=== PATIENT | female | born 1935 | race Caucasian/White ===

== ENCOUNTER 2018-05-01 02:39 | Observation (INO) | payer BC ==
[2018-05-01 03:41] VITALS: BMI 26.5
--- NOTE | 2018-05-01 04:09 | PDOC ---
Attending Attestation - HPI HPI: 05/01/18 05:17 The patient is a 83 year old female, with a significant past medical history of hypertension and hyperlipidemia, who presents to the emergency department with, chest pain. Patient notes her chest pain onset at 1AM as substernal, pressure- like pain. She denies any worsening or alleviating factors. She denies recent fevers, chills, headache or dizziness. She denies recent nausea, vomit, diarrhea or constipation. She denies recent dysuria, frequency, urgency or hematuria. She denies recent shortness of breath. Allergies: As per nursing notes. Primary Care Physician: Dr. Quinones - Physicial Exam PE: 05/01/18 05:17 Refer to resident exam. <Inessa Sanchez - Last Filed: 05/01/18 05:17> - Resident Resident Name: Melvi Constantino - ED Attending Attestation I have performed the following: I have examined & evaluated the patient, The case was reviewed & discussed with the resident, I agree w/resident's findings & plan - Medical Decision Making 05/01/18 06:08 83-year-old female with substernal chest pressure that began at rest while watching TV EKG shows no acute ST changes though patient's heart score is 4 She will be held for serial enzymes <Elsie Porter - Last Filed: 05/01/18 06:10> Attestations - Attestations 05/01/18 05:18 Documentation prepared by Inessa Sanchez, acting as medical physics professor for Elsie Porter DO. <Inessa Sanchez - Last Filed: 05/01/18 05:17>
[2018-05-01] MEDS ORDERED: FAMOTIDINE 20 MG/50 ML IVPB 20 MG/50 ML MG IVPB ONE ×2 (05:07→05:55)
--- NOTE | 2018-05-01 05:12 | PDOC ---
History of Present Illness - General History Source: Patient <Comfort Constantinoica - Last Filed: 05/01/18 05:12> <Elder Wu - Last Filed: 05/01/18 09:39> - General Chief Complaint: Chest Pain Stated Complaint: CHEST PAIN Time Seen by Provider: 05/01/18 04:09 Past History - Past Medical History COPD: No HTN: Yes Hypercholesterolemia: Yes - Surgical History Appendectomy: Yes - Suicide/Smoking/Psychosocial Hx Smoking History: Never smoked Have you smoked in the past 12 months: No Information on smoking cessation initiated: No Hx Alcohol Use: No Drug/Substance Use Hx: No Substance Use Type: None <Vira,Melvi - Last Filed: 05/01/18 05:12> <Elder Wu - Last Filed: 05/01/18 09:39> - Past Medical History Allergies/Adverse Reactions: Allergies Allergy/AdvReac Type Severity Reaction Status Date / Time acetaminophen [From Vicodin] Allergy Verified 05/01/18 03:53 cortisone [Cortisone] Allergy Verified 05/01/18 03:53 hydrocodone bitartrate Allergy Verified 05/01/18 03:53 [From Vicodin] amoxicillin AdvReac Verified 05/01/18 03:53 epinephrine AdvReac Verified 05/01/18 03:53 Home Medications: Ambulatory Orders Metoprolol Succinate [Toprol XL -] 25 mg PO DAILY 03/08/13 Simvastatin [Zocor -] 10 mg PO DAILY 03/08/13 Levofloxacin [Levaquin] 500 mg PO DAILY #7 tablet 10/11/17 Prednisone 10 mg PO BID 4 Days #8 tablet 10/11/17 *Physical Exam - Vital Signs Last Vital Signs Temp Pulse Resp BP Pulse Ox 98.5 F 70 18 162/65 98 05/01/18 02:39 05/01/18 02:39 05/01/18 02:39 05/01/18 02:39 05/01/18 02:39 <ViraMelvi - Last Filed: 05/01/18 05:12> - Vital Signs Last Vital Signs Temp Pulse Resp BP Pulse Ox 98.5 F 70 18 162/65 98 05/01/18 02:39 05/01/18 02:39 05/01/18 02:39 05/01/18 02:39 05/01/18 02:39 <Elder Wu - Last Filed: 05/01/18 09:39> Moderate Sedation - Procedure Monitoring Vital Signs: Procedure Monitoring Vital Signs Temperature 98.5 F 05/01/18 02:39 Pulse Rate 70 05/01/18 02:39 Respiratory Rate 18 05/01/18 02:39 Blood Pressure 162/65 05/01/18 02:39 O2 Sat by Pulse Oximetry (%) 98 05/01/18 02:39 <Melvi Constantino - Last Filed: 05/01/18 05:12> - Procedure Monitoring Vital Signs: Procedure Monitoring Vital Signs Temperature 98.5 F 05/01/18 02:39 Pulse Rate 70 05/01/18 02:39 Respiratory Rate 18 05/01/18 02:39 Blood Pressure 162/65 05/01/18 02:39 O2 Sat by Pulse Oximetry (%) 98 05/01/18 02:39 <Elder Wu - Last Filed: 05/01/18 09:39> ED Treatment Course - LABORATORY CBC & Chemistry Diagram: 05/01/18 05:28 05/01/18 05:28 - ADDITIONAL ORDERS Additional order review: Laboratory Results 05/01/18 05/01/18 05:28 05:28 Sodium 138 Potassium 4.5 Chloride 110 H Carbon Dioxide 21 Anion Gap 7 L BUN 29 H Creatinine 0.9 Creat Clearance w eGFR 59.51 Random Glucose 124 H Calcium 9.1 Total Bilirubin 0.2 AST 21 ALT 23 Alkaline Phosphatase 64 Creatine Kinase 39 Troponin I < 0.02 Total Protein 6.7 Albumin 3.4 Lipase Cancelled 112 05/01/18 05:28 RBC 4.36 MCV 86.7 MCHC 34.7 RDW 14.7 MPV 8.9 - Medications Given in the ED: ED Medications Discontinued Medications Generic Name Dose Route Start Last Admin Trade Name Freq PRN Reason Stop Dose Admin Famotidine/Sodium Chloride 20 mg in 50 mls @ 100 mls/hr 05/01/18 05:07 06:05 Pepcid 20 Mg Premixed Ivpb - IVPB 05/01/18 05:36 100 mls/hr ONCE ONE Administration <Elder Wu - Last Filed: 05/01/18 09:39> *DC/Admit/Observation/Transfer <Melvi Constantino - Last Filed: 05/01/18 05:12> - Discharge Dispostion Decision to Admit order: Yes <Elder Wu - Last Filed: 05/01/18 09:39> Diagnosis at time of Disposition: Chest pain Qualifiers: Chest pain type: unspecified Qualified Code(s): R07.9 - Chest pain, unspecified - Discharge Dispostion Condition at time of disposition: Fair - Referrals Referrals: Saurav Quinones [Primary Care Provider] - - Patient Instructions - Post Discharge Activity
[2018-05-01 05:38] LABS: HEMATOCRIT 37.7 % (32.4-45.2); HEMOGLOBIN 13.1 GM/dL (10.7-15.3); MCH 30.1 pg (25.7-33.7); MCHC 34.7 g/dl (32.0-36.0); MEAN CELL VOLUME 86.7 fl (80-96); MEAN PLT VOLUME 8.9 fl (7.5-11.1); PLATELET COUNT 208 K/MM3 (134-434); RBC 4.36 M/mm3 (3.60-5.2); RDW 14.7 % (11.6-15.6)
[2018-05-01 06:04] LABS: ALBUMIN 3.4 g/dl (3.4-5.0); ALK PHOS 64 U/L (45-117); ANION GAP 7 MMOL/L (8-16); BILIRUBIN,TOTAL 0.2 mg/dL (0.2-1); BLOOD UREA NITROGEN 29 mg/dL (7-18); CALCIUM 9.1 mg/dL (8.5-10.1); CHLORIDE 110 mmol/L (98-107); CO2 21 mmol/L (21-32); CREATININE 0.9 mg/dL (0.55-1.3); GLUCOSE,RANDOM 124 mg/dL (74-106); POTASSIUM 4.5 mmol/L (3.5-5.1); SGOT/AST 21 U/L (15-37); SGPT/ALT 23 U/L (13-61); SODIUM 138 mmol/L (136-145); TOT PROT 6.7 g/dl (6.4-8.2)
[2018-05-01 06:30] LABS: LIPASE 112 U/L (73-393)
[2018-05-01] MEDS ORDERED: ASPIRIN 325 MG ENTERIC COATED TABLET (FP) PO ONE (09:30)
[2018-05-01] MEDS ORDERED: SODIUM CHLORIDE 1,000 ML IV SCH (09:30)
--- NOTE | 2018-05-01 09:35 | HP ---
CHIEF COMPLAINT: chest PCP:Dr. Quinones HISTORY OF PRESENT ILLNESS: 83 yo F with significant PMHx of HTN,HLD, and GERD presents with few hour history of chest pain. She states that at midnight last night while watching TV she experienced some 6/10 non-radiating substernal chest pressure that lasted for approx. 2 hrs. No alleviating or aggrevating factors. Not associated with activity or relieved with rest. No cardiac history, never seen a marketing underwriter. Pain is not reproducible by palpation. Denies PRO, SOB, abdominal pain, nausea, vomiting, fever or chills. ER course was notable for: (1)Given ASA 325mg (2)Given Pepcid (3)Trop (-) x1 (4)EKG shows NSR, normal intervals, no st or t wave changes. Recent Travel: just returned from [facility]. PAST MEDICAL HISTORY:HTN,HLD, and GERD PAST SURGICAL HISTORY: appendectomy 6 yrs ago Social History: Smoking:denies Alcohol:denies Drugs: denies. Family History:Sister of Ovarian Ca. Allergies acetaminophen [From Vicodin] Allergy (Verified 05/01/18 03:53) cortisone [Cortisone] Allergy (Verified 05/01/18 03:53) hydrocodone bitartrate [From Vicodin] Allergy (Verified 05/01/18 03:53) amoxicillin Adverse Reaction (Verified 05/01/18 03:53) epinephrine Adverse Reaction (Verified 05/01/18 03:53) HOME MEDICATIONS: Home Medications Medication Instructions Recorded Metoprolol Succinate [Toprol XL -] 25 mg PO DAILY 03/08/13 Simvastatin [Zocor -] 10 mg PO DAILY 03/08/13 Levofloxacin [Levaquin] 500 mg PO DAILY #7 tablet 10/11/17 Prednisone 10 mg PO BID 4 Days #8 tablet 10/11/17 REVIEW OF SYSTEMS CONSTITUTIONAL: Absent: fever, chills, diaphoresis, generalized weakness, malaise, loss of appetite, weight change HEENT: Absent: rhinorrhea, nasal congestion, throat pain, throat swelling, difficulty swallowing, mouth swelling, ear pain, eye pain, visual changes CARDIOVASCULAR: chest pain Absent: , syncope, palpitations, irregular heart rate, lightheadedness, peripheral edema RESPIRATORY: Absent: cough, shortness of breath, dyspnea with exertion, orthopnea, wheezing, stridor, hemoptysis GASTROINTESTINAL: Absent: abdominal pain, abdominal distension, nausea, vomiting, diarrhea, constipation, melena, hematochezia GENITOURINARY: Absent: dysuria, frequency, urgency, hesitancy, hematuria, flank pain, genital pain MUSCULOSKELETAL: Absent: myalgia, arthralgia, joint swelling, back pain, neck pain SKIN: Absent: rash, itching, pallor HEMATOLOGIC/IMMUNOLOGIC: Absent: easy bleeding, easy bruising, lymphadenopathy, frequent infections ENDOCRINE: Absent: unexplained weight gain, unexplained weight loss, heat intolerance, cold intolerance NEUROLOGIC: Absent: headache, focal weakness or paresthesias, dizziness, unsteady gait, seizure, mental status changes, bladder or bowel incontinence PSYCHIATRIC: Absent: anxiety, depression, suicidal or homicidal ideation, hallucinations. PHYSICAL EXAMINATION Vital Signs - 24 hr 05/01/18 02:39 Temperature 98.5 F Pulse Rate 70 Respiratory 18 Rate Blood Pressure 162/65 O2 Sat by Pulse 98 Oximetry (%) GENERAL:AAOx3, NAD HEAD: NCAT EYES: PERRLA, EOMI, sclera anicteric, conjunctiva clear. EARS, NOSE, THROAT: Moist mucous membranes. NECK: Normal ROM, supple w/o lymphadenopathy, JVD, or masses. LUNGS: CTAB. No wheezes, and no crackles. No accessory muscle use. HEART: RRR, normal S1 and S2 without murmur, rub or gallop. ABDOMEN: Soft, NTND, NABS, no guarding, no rebound, no masses. No hepatomegaly or splenomegaly. MUSCULOSKELETAL: Normal range of motion at all joints. No bony deformities or tenderness. No CVA tenderness. LOWER EXTREMITIES: 2+ pulses, warm, well-perfused. No calf tenderness. No peripheral edema. NEUROLOGICAL: Cranial nerves II-XII intact. Normal speech. PSYCHIATRIC: Cooperative. Good eye contact. Appropriate mood and affect. SKIN: Warm, dry, normal turgor, no rashes or lesions noted, normal capillary refill. Laboratory Results - last 24 hr 05/01/18 05/01/18 05/01/18 05:28 05:28 05:28 WBC 8.0 RBC 4.36 Hgb 13.1 Hct 37.7 MCV 86.7 MCH 30.1 MCHC 34.7 RDW 14.7 Plt Count 208 MPV 8.9 Sodium 138 Potassium 4.5 Chloride 110 H Carbon Dioxide 21 Anion Gap 7 L BUN 29 H Creatinine 0.9 Creat Clearance w eGFR 59.51 Random Glucose 124 H Calcium 9.1 Total Bilirubin 0.2 AST 21 ALT 23 Alkaline Phosphatase 64 Creatine Kinase 39 Troponin I < 0.02 Total Protein 6.7 Albumin 3.4 Lipase 112 Cancelled ASSESSMENT/PLAN: 83 yo F with significant PMHx of HTN,HLD, and GERD presents with few hour history of chest pain placed on observation to r/o ACS. Problem List - Problem (1) Chest pain Assessment/Plan: Non-anginal chest pain. Intermediate pre-test probability. * Place on observation to telemetry. * trend trops. * Cardiology consult. * continue statin and ASA * Possibly just GERD related discomfort. (2) HTN (hypertension) Assessment/Plan: * Continue BB- Toprol XL 25mg daily. (3) HLD (hyperlipidemia) Assessment/Plan: continue statin - Lipitor 10mg HS (4) Prerenal azotemia Assessment/Plan: most likely 2/2 decreased intake. * Will hydrate with NS @ 83ml/hr / (5) DVT prophylaxis Visit type - Emergency Visit Emergency Visit: Yes ED Registration Date: 05/01/18 Care time: The patient presented to the Emergency Department on the above date and was hospitalized for further evaluation of their emergent condition. - New Patient This patient is new to me today: Yes Date on this admission: 05/01/18 - Critical Care Critical Care patient: No
[2018-05-01] MEDS ORDERED: metoPROLOL SUCCINATE 25 MG TAB.SR.24H (FP) PO SCH (10:00)
[2018-05-01] MEDS ORDERED: predniSONE 10 MG TABLET (UD) PO SCH (10:00)
[2018-05-01] MEDS ORDERED: predniSONE 10 MG TABLET (UD) ONE (10:31)
[2018-05-01] MEDS ORDERED: ASPIRIN 81 MG CHEWABLE TABLETS ONE (10:31)
--- NOTE | 2018-05-01 11:38 | PN ---
Teaching Attending Note Name of Resident: Kyaw Flynn ATTENDING PHYSICIAN STATEMENT I saw and evaluated the patient. I reviewed the resident's note and discussed the case with the resident. I agree with the resident's findings and plan as documented. SUBJECTIVE: This is an 83 year old woman with a history of HTN, hyperlipidemia, GERD who comes to the ED complaining of chest pain. She says she developed sub- sternal and epigastric pain while watching tv around midnight. She denies nausea , dizziness, palpitations, SOB. The pain did not radiate. The pain was continuous for about 2 hours and began to improve before she arrived in the ED. She was treated with Pepcid IV and the pain resolved completely. She has not had recent exertional chest pain. She ate fried food last night. OBJECTIVE: Vital Signs Period Temp Pulse Resp BP Sys/Hernandez Pulse Ox Last 24 Hr 98.5 F 70 18 162/65 98 HEART: S1S2, RRR LUNGS: Clear ABDOMEN: Soft, non-tender, non-distended, normal BS EXTREMITIES: No edema Laboratory Tests 05/01/18 05/01/18 05/01/18 05:28 05:28 05:28 WBC 8.0 RBC 4.36 Hgb 13.1 Hct 37.7 MCV 86.7 MCH 30.1 MCHC 34.7 RDW 14.7 Plt Count 208 MPV 8.9 Sodium 138 Potassium 4.5 Chloride 110 H Carbon Dioxide 21 Anion Gap 7 L BUN 29 H Creatinine 0.9 Creat Clearance w eGFR 59.51 Random Glucose 124 H Calcium 9.1 Total Bilirubin 0.2 AST 21 ALT 23 Alkaline Phosphatase 64 Creatine Kinase 39 Troponin I < 0.02 Total Protein 6.7 Albumin 3.4 Lipase 112 Cancelled 05/01/18 05:28 WBC RBC Hgb Hct MCV MCH MCHC RDW Plt Count MPV Sodium Potassium Chloride Carbon Dioxide Anion Gap BUN Creatinine Creat Clearance w eGFR Random Glucose Calcium Total Bilirubin AST ALT Alkaline Phosphatase Creatine Kinase Troponin I Cancelled Total Protein Albumin Lipase Home Medications Medication Instructions Recorded Metoprolol Succinate [Toprol XL -] 25 mg PO DAILY 03/08/13 Simvastatin [Zocor -] 10 mg PO DAILY 03/08/13 Levofloxacin [Levaquin] 500 mg PO DAILY #7 tablet 10/11/17 Prednisone 10 mg PO BID 4 Days #8 tablet 10/11/17 ASSESSMENT AND PLAN: This is an 83 year old woman with a history of HTN, hyperlipidemia, GERD who presented to the ED with sub-sternal chest pain and epigastric pain. 1. Chest pain - Observe on telemetry - Serial troponins - Echocardiogram - Continue aspirin, Toprol XL, Lipitor - Likely GI in origin - Patient ate fried food prior to onset of symptoms - Continue omeprazole - [facility] 2. HTN - Continue Toprol XL 3. Hyperlipidemia - Continue Lipitor 4. GERD - Continue omeprazole
--- NOTE | 2018-05-01 12:09 | EKG ---
Test Reason : Blood Pressure : / mmHG Vent. Rate : 073 BPM Atrial Rate : 073 BPM P-R Int : 144 ms QRS Dur : 080 ms QT Int : 382 ms P-R-T Axes : 058 006 030 degrees QTc Int : 420 ms NORMAL SINUS RHYTHM NORMAL ECG NO PREVIOUS ECGS AVAILABLE Confirmed by KATALINA VARGAS, SARAH ([id number]) on 05/01/2018 12:09:20 PM Referred By: Confirmed By:SARAH DARDEN MD
[2018-05-01 14:31] VITALS: BP 175/88; PULSE 75; TEMP 97.7
--- NOTE | 2018-05-01 15:50 | ECHO ---
Name: SANDI MENDOZA Exam:Adult Echocardiogram Study Date: 05/01/2018 02:21 PM Age: 83 yrs Reason For Study: ASSESS LVF AND FUNCTION Height: 62 in Weight: 145 lb BSA: 1.7 m2 MMode/2D Measurements & Calculations IVSd: 0.75 cm Ao root diam: 2.6 cm LVIDd: 4.0 cm LA dimension: 3.5 cm LVIDs: 2.9 cm LVPWd: 0.69 cm EDV(Teich): 72.0 ml LVOT diam: 2.1 cm ESV(Teich): 32.5 ml TAPSE: 2.7 cm Doppler Measurements & Calculations MV E max jacek: 50.0 cm/sec Ao V2 max: 124.9 cm/sec MV A max jacek: 67.9 cm/sec Ao max P.2 mmHg MV E/A: 0.74 Ao V2 mean: 75.2 cm/sec MV dec time: 0.15 sec Ao mean P.6 mmHg Ao V2 VTI: 23.8 cm MICHAEL(I,D): 2.6 cm2 MICHAEL(V,D): 2.2 cm2 LV V1 max P.3 mmHg MR max jacek: 373.5 cm/sec LV V1 mean P.3 mmHg MR max P.8 mmHg LV V1 max: 76.4 cm/sec LV V1 mean: 53.6 cm/sec LV V1 VTI: 17.2 cm SV(LVOT): 61.0 ml TR max jacek: 235.3 cm/sec TR max P.2 mmHg PI end-d jacek: 111.3 cm/sec Med Peak E' Jacek: 4.6 cm/sec Med E/e': 10.9 Lat Peak E' Jacek: 6.1 cm/sec Lat E/e': 8.2 Procedure A two-dimensional transthoracic echocardiogram with color flow and Doppler was performed. The study w as technically difficult with many images being suboptimal in quality. Left Ventricle The left ventricular size, thickness and function are normal. The left ventricular ejection fraction is normal. Left Ventricular Filling pattern is normal for age. Regional wall motion abnormalities cannot be excluded due to limited visualization. Right Ventricle The right ventricle is normal in size and function. Atria Normal left and right atrial size and function. The atrial septum is aneurysmal. Mitral Valve There is mild mitral valve thickening. There is no mitral valve stenosis. There is mild mitral regurg itation. Tricuspid Valve The tricuspid valve is not well visualized. There is no tricuspid stenosis. There is severe tricuspid regurgitation. Right ventricular systolic pressure is normal. Aortic Valve The aortic valve is not well visualized. No hemodynamically significant valvular aortic stenosis. Mod erate aortic regurgitation. Pulmonic Valve The pulmonic valve is not well visualized. There is no pulmonic valvular stenosis. Mild pulmonic valv ular regurgitation. Great Vessels The aortic root is normal size. Pericardium/Pleura There is no pericardial effusion. Interpretation Summary Moderate aortic regurgitation. There is severe tricuspid regurgitation. Right ventricular systolic pressure is normal. The left ventricular ejection fraction is normal. Regional wall motion abnormalities cannot be excluded due to limited visualization. The study was technically difficult with many images being suboptimal in quality. There is mild mitral regurgitation. Left Ventricular Filling pattern is normal for age. MD Rex Mcguire 05/01/2018 03:49 PM
--- NOTE | 2018-05-01 16:38 | DS ---
Physical Exam: SUBJECTIVE: Patient seen and examined. Without complaint. Ready for d/c. OBJECTIVE: Vital Signs Period Temp Pulse Resp BP Sys/Hernandez Pulse Ox Last 24 Hr 97.7 F-98.5 F 70-75 18-19 162-175/65-88 98-100 PHYSICAL EXAM GENERAL:AAOx3, NAD HEAD: NCAT EYES: PERRLA, EOMI, sclera anicteric, conjunctiva clear. EARS, NOSE, THROAT: Moist mucous membranes. NECK: Normal ROM, supple w/o lymphadenopathy, JVD, or masses. LUNGS: CTAB. No wheezes, and no crackles. No accessory muscle use. HEART: RRR, normal S1 and S2 without murmur, rub or gallop. ABDOMEN: Soft, NTND, NABS, no guarding, no rebound, no masses. No hepatomegaly or splenomegaly. MUSCULOSKELETAL: Normal range of motion at all joints. No bony deformities or tenderness. No CVA tenderness. LOWER EXTREMITIES: 2+ pulses, warm, well-perfused. No calf tenderness. No peripheral edema. NEUROLOGICAL: Cranial nerves II-XII intact. Normal speech. PSYCHIATRIC: Cooperative. Good eye contact. Appropriate mood and affect. SKIN: Warm, dry, normal turgor, no rashes or lesions noted, normal capillary refill. LABS Laboratory Results - last 24 hr 05/01/18 05/01/18 05:28 05:28 WBC 8.0 RBC 4.36 Hgb 13.1 Hct 37.7 MCV 86.7 MCH 30.1 MCHC 34.7 RDW 14.7 Plt Count 208 MPV 8.9 Sodium 138 Potassium 4.5 Chloride 110 H Carbon Dioxide 21 Anion Gap 7 L BUN 29 H Creatinine 0.9 Creat Clearance w eGFR 59.51 Random Glucose 124 H Calcium 9.1 Total Bilirubin 0.2 AST 21 ALT 23 Alkaline Phosphatase 64 Creatine Kinase 39 Troponin I < 0.02 Total Protein 6.7 Albumin 3.4 Lipase 112 Troponin trend 05/01/18 05/01/18 05:28 10:51 Troponin I < 0.02 < 0.02 abdomen u/s: largely contracted and thick-walled gallbladder. mildly atrophic R kidney. no acute pathology in abdomen. ECHO: moderate AR, severe TR. RVSP is normal. LV EF is normal. regional wall motion abnormalities cannot be excluded due to limited visualization. study was technically difficult with many images being suboptimal in quality. mild MR. LV filling pattern is normal for age. EKG: NSR, normal intervals, no st or t wave changes. HOSPITAL COURSE: Date of Admission:05/01/18 Date of Discharge: 05/01/18 83 yo F with significant PMHx of HTN,HLD, and GERD presents with few hour history of chest pain. She states that at midnight last night while watching TV she experienced some 6/10 non-radiating substernal chest pressure that lasted for approx. 2 hrs. No alleviating or aggrevating factors. Not associated with activity or relieved with rest. No cardiac history, never seen a shipping weigher. Pain is not reproducible by palpation. Denies PRO, SOB, abdominal pain, nausea, vomiting, fever or chills. After pt was admitted, her trops were trended and (-)x 2. EKG was NSR without significant st or t wave changes. She had an ECHO which showed moderate AR, severe TR. This was explained to the patient at bedside, expressed verbal understanding that it is important to f/u cardiology. Abd sono only with evidence of large contracted and thick-walled GB, pt can f/u with PMD. On d/c, pt no longer with chest pain or pressure, states that she feels well. Told to continue home meds, especially omeprazole for acidity and baby asa. Minutes to complete discharge: 45 Discharge Summary Reason For Visit: CHEST PAIN Current Active Problems GERD (gastroesophageal reflux disease) (Chronic) HLD (hyperlipidemia) (Chronic) HTN (hypertension) (Chronic) Condition: Fair - Instructions Diet, Activity, Other Instructions: Your visit You were in the hospital because you had chest pain. You had your cardiac enzymes checked and they were normal. You also had a sonogram done of your abdomen which showed that your gall bladder was large, however this is something that you can follow up with your primary care doctor when you go home. You also had an ECHO done (a picture taken of your heart) - it showed that you have some backward leak through your aortic and tricuspid heart valves. This is something that likely occurred over time, you can discuss this with a shipping weigher when you go home. You were seen by a heart doctor, Dr. Prado during your stay and you have been cleared to go home. Medications -We are starting you on baby aspirin (81mg). Take one daily. Please take your home medications. Including omeprazole. This will help decrease the acid in your stomach. Follow up Please follow up with the following doctors: -heart doctor, Dr. Prado - 2 weeks -your primary care doctor, Dr. Quinones - 1 week to discuss your hospital visit. If you develop shortness of breath or chest pain, please go to the hospital. Referrals: Saurav Quinones MD [Other] - 1 Week Antione Prado MD [Staff Physician] - 2 Weeks Disposition: HOME - Home Medications Comprehensive Discharge Medication List: Ambulatory Orders Metoprolol Succinate [Toprol XL -] 25 mg PO DAILY 03/08/13 Simvastatin [Zocor -] 10 mg PO DAILY 03/08/13 Alendronate Sodium [Binosto] 70 mg PO WEEKLY 05/01/18 Aspirin 81 mg PO DAILY #30 tab.chew 05/01/18 Omeprazole 20 mg PO DAILY 05/01/18 This patient is new to me today: Yes Date on this admission: 05/01/18 Emergency Visit: Yes ED Registration Date: 05/01/18 Care time: The patient presented to the Emergency Department on the above date and was hospitalized for further evaluation of their emergent condition. Critical Care patient: No - Discharge Referral Referred to [facility] No
--- NOTE | 2018-05-01 17:03 | CON.CARD ---
Consult Consult Specialty:: Cardiology Referred by:: Dr. Sanon/Danielle Reason for Consultation:: chest pain - History of Present Illness Chief Complaint: chest pain History of Present Illness: 83 year old woman with pmh HTN, HLD, GERD admitted with episode of chest pain. pt seen and examined in the ER in [facility]. pt states that last night around 12am while sitting watching tv she had sudden onset substernal chest pain that lasted approx 2 hours. when it did not resolve she alerted her family who then brought her to the ER. Chest pain has not recurred. she denies having had this chest pain in the past. denies prior cardiac work up. no sob, palpitations, pnd, orthopnea, or LE edema. - Alcohol/Substance Use Hx Alcohol Use: No - Smoking History Smoking history: Never smoked Have you smoked in the past 12 months: No Home Medications - Allergies Allergies/Adverse Reactions: Allergies Allergy/AdvReac Type Severity Reaction Status Date / Time acetaminophen [From Vicodin] Allergy Verified 05/01/18 03:53 cortisone [Cortisone] Allergy Verified 05/01/18 03:53 hydrocodone bitartrate Allergy Verified 05/01/18 03:53 [From Vicodin] amoxicillin AdvReac Verified 05/01/18 03:53 epinephrine AdvReac Verified 05/01/18 03:53 - Home Medications Home Medications: Ambulatory Orders Metoprolol Succinate [Toprol XL -] 25 mg PO DAILY 03/08/13 Simvastatin [Zocor -] 10 mg PO DAILY 03/08/13 Alendronate Sodium [Binosto] 70 mg PO WEEKLY 05/01/18 Aspirin 81 mg PO DAILY #30 tab.chew 05/01/18 Omeprazole 20 mg PO DAILY 05/01/18 Vital Signs: Vital Signs Temperature 97.7 F 05/01/18 14:29 Pulse Rate 75 05/01/18 14:29 Respiratory Rate 19 05/01/18 14:29 Blood Pressure 175/88 H 05/01/18 14:29 O2 Sat by Pulse Oximetry (%) 100 05/01/18 14:29 - Other Data Labs, Other Data: CBC, BMP 05/01/18 05:28 05/01/18 05:28 Troponin, BNP 05/01/18 05/01/18 05/01/18 05:28 05:28 10:51 Troponin I < 0.02 Cancelled < 0.02 Troponin, BNP 05/01/18 05/01/18 05/01/18 05:28 05:28 10:51 Troponin I < 0.02 Cancelled < 0.02 Assessment/Plan 83 year old woman with pmh HTN, HLD, GERD admitted with episode of chest pain. pt seen and examined in the ER in [place]. pt states that last night around 12am while sitting watching tv she had sudden onset substernal chest pain that lasted approx 2 hours. when it did not resolve she alerted her family who then brought her to the ER. Chest pain has not recurred. she denies having had this chest pain in the past. denies prior cardiac work up. no sob, palpitations, pnd, orthopnea, or LE edema. Chest pain-atypical, unlikely ACS -ekg no ischemia -cardiac enzymes wnl -chest pain has not recurred -echo showed normal lvef -valvular heart disease noted, mild mr, mod AR, severe TR -pt asymptomatic in regards to valvular heart disease which is likely chronic -no additional inpatient cardiac work up is needed at this time. -pt is acceptable for discharge home and would plan for outpatient fup.
[2018-05-01] MEDS ORDERED: ATORVASTATIN CA 10 MG TABLET (FP) PO SCH (22:00)
== END 2018-05-01 17:00 | disposition home or self-care (01) ==
LOC: JER 02:39 → JERBED 09:39
PROVIDERS: ADMIT Internal Medicine; ATTEND Internal Medicine
PROC: 3E033GC Introduction of Other Therapeutic Substance into Peripheral Vein, Percutaneous Approach (ICD-10-PCS; principal; 2018-05-01)
PROC: 3E0337Z Introduction of Electrolytic and Water Balance Substance into Peripheral Vein, Percutaneous Approach (ICD-10-PCS; 2018-05-01)
DX: R07.9 Chest pain, unspecified (principal); I10 Essential (primary) hypertension; E78.5 Hyperlipidemia, unspecified; K21.9 Gastro-esophageal reflux disease without esophagitis; R79.89 Other specified abnormal findings of blood chemistry; Z88.1 Allergy status to other antibiotic agents
CPT/HCPCS: 36415; 71045-TC-FY; 76705-TC; 80053; 82550; 83690; 84484; 85027; 93005; 93010; 93306-TC; 96365; 99283-25; G0378; J7030

== ENCOUNTER 2020-02-27 11:28 | Emergency (ER) | payer BC ==
[2020-02-27 11:46] VITALS: BP 156/85; PULSE 94; TEMP 99; BMI 22.1
[2020-02-27] MEDS ORDERED: ACETAMINOPHEN 500 MG TABLET (FP) PO ONE (12:08)
[2020-02-27] MEDS ORDERED: ACETAMINOPHEN 500 MG TABLET (FP) ONE (12:15)
== END 2020-02-27 13:28 | disposition home or self-care (01) ==
LOC: FER 11:28
PROC: 2W3CX1Z Immobilization of Right Lower Arm using Splint (ICD-10-PCS; principal; 2020-02-27)
DX: S52.501A Unspecified fracture of the lower end of right radius, initial encounter for closed fracture (principal); S52.601A Unspecified fracture of lower end of right ulna, initial encounter for closed fracture
CPT/HCPCS: 73110-TC-RT-FY; 73130-TC-RT-FY; 73630-TC-LT; 99284-25

== ENCOUNTER 2020-03-10 12:14 | Day surgery (SDC) | payer BC ==
[2020-03-08 16:29] VITALS: BMI 26.5
[2020-03-10] MEDS ORDERED: MIDAZOLAM HCL 2 MG/2 ML SINGLE DOSE VIAL ONE ×3 (14:14→14:40)
[2020-03-10] MEDS ORDERED: ROPIVACAINE HCL 0.5% 30ML VIAL ONE (14:14)
[2020-03-10] MEDS ORDERED: PROPOFOL 20 ML ONE ×2 (14:37)
[2020-03-10] MEDS ORDERED: GUM MASTIC/STORAX/MSAL/ALCOHOL 1 DRP DROPSBTL MC ONE (15:35)
[2020-03-10] MEDS ORDERED: PROMETHAZINE HCL 25 MG/1 ML VIAL IVPUSH PRN (16:16)
[2020-03-10] MEDS ORDERED: ONDANSETRON 4 MG/2 ML VIAL IVPUSH PRN (16:16)
[2020-03-10] MEDS ORDERED: oxyCODONE HCL 5 MG TABLET PO PRN (16:16)
[2020-03-10 17:45] VITALS: BP 140/74; PULSE 89; TEMP 98
== END 2020-03-10 17:45 | disposition home or self-care (01) ==
LOC: FASU 12:14
PROVIDERS: ATTEND Orthopaedic Surgery Hand Surgery
PROC: 0LN50ZZ Release Right Lower Arm and Wrist Tendon, Open Approach (ICD-10-PCS; 2020-03-10)
PROC: 0PSH04Z Reposition Right Radius with Internal Fixation Device, Open Approach (ICD-10-PCS; principal; 2020-03-10 14:49)
DX: S52.571A Other intraarticular fracture of lower end of right radius, initial encounter for closed fracture (principal); X58.XXXA Exposure to other specified factors, initial encounter; Y93.9 Activity, unspecified; Y92.9 Unspecified place or not applicable
CPT/HCPCS: 25290; 25609; C1713; 73110-TC-RT-FY; 73130-TC-RT-FY; 94760

== ENCOUNTER 2021-04-22 04:08 | Day surgery (SDC) | payer BC ==
[2021-04-20 15:00] VITALS: BMI 24.7
[~2021-04-22 04:08] MED LIST: BUPIVACAINE HCL/PF 0.75% 10 ML VIAL NR ONE; IOHEXOL 180 MG/1 ML ML IJ ONE; LIDOCAINE 1% P/F 10 MG/ML VIAL INF ONE
[2021-04-22] MEDS ORDERED: LIDOCAINE HCL/PF 1% SDV 5ML VIAL ONE (07:20)
[2021-04-22] MEDS ORDERED: DEXAMETHASONE SOD PHOSPHATE 10 MG/1 ML VIAL ONE (07:20)
[2021-04-22] MEDS ORDERED: BUPIVACAINE HCL/PF 0.75% 10 ML VIAL ONE (07:20)
[2021-04-22] MEDS ORDERED: LIDOCAINE HCL/PF 2% SDV 5ML VIAL ONE (07:22)
[2021-04-22] MEDS ORDERED: IOHEXOL 180 MG/1 ML ML IJ ONE ×2 (08:36→08:39)
[2021-04-22] MEDS ORDERED: LIDOCAINE 1% P/F 10 MG/ML VIAL INF ONE (08:37)
[2021-04-22] MEDS ORDERED: BUPIVACAINE HCL/PF 0.75% 10 ML VIAL NR ONE ×4 (08:39→08:45)
[2021-04-22 09:07] VITALS: BP 110/81; PULSE 80; TEMP 98.8
== END 2021-04-22 09:30 | disposition home or self-care (01) ==
LOC: JASU-SURG 04:08
PROVIDERS: ATTEND Pain Medicine Pain Medicine
PROC: BR16YZZ Fluoroscopy of Lumbar Facet Joint(s) using Other Contrast (ICD-10-PCS; 2021-04-22)
PROC: 3E0T3BZ Introduction of Anesthetic Agent into Peripheral Nerves and Plexi, Percutaneous Approach (ICD-10-PCS; principal; 2021-04-22 08:00)
DX: M47.816 Spondylosis without myelopathy or radiculopathy, lumbar region (principal); I10 Essential (primary) hypertension
CPT/HCPCS: 76000-TC-FY; J1100

== ENCOUNTER 2022-07-16 09:40 | Emergency (ER) | payer BC ==
[2022-07-16] MEDS ORDERED: IBUPROFEN 400 MG TABLET (FP) PO ONE ×2 (09:50→10:09)
[2022-07-16 10:01] VITALS: BP 146/69; PULSE 77; RESP 18; TEMP 97.8; BMI 26.5
== END 2022-07-16 11:20 | disposition home or self-care (01) ==
LOC: FER 09:40
PROC: 2W3SX1Z Immobilization of Right Foot using Splint (ICD-10-PCS; principal; 2022-07-16)
DX: S92.354A Nondisplaced fracture of fifth metatarsal bone, right foot, initial encounter for closed fracture (principal); M25.571 Pain in right ankle and joints of right foot; X50.1XXA Overexertion from prolonged static or awkward postures, initial encounter; Y93.01 Activity, walking, marching and hiking
CPT/HCPCS: 73610-TC-RT-FY; 73630-TC-RT-FY; 99283-25